=== PATIENT | male | born 1965 | race Caucasian/White ===

== ENCOUNTER 2022-08-25 11:00 | Inpatient (IN) | payer OTHER ==
[2022-09-08 18:03] VITALS: BMI 38.2
[2022-09-19] MEDS ORDERED: BUPIVACAINE HCL/PF 2.5 MG/ML - 30 ML VIAL IJ ONE (10:16)
[2022-09-19] MEDS ORDERED: PROPOFOL 40 ML ONE (11:26)
[2022-09-19] MEDS ORDERED: SUCCINYLCHOLINE CHLORIDE 200 MG/10 ML SYRINGE ONE (11:35)
[2022-09-19] MEDS ORDERED: ROCURONIUM BROMIDE 50 MG/5 ML SYRINGE ONE ×2 (11:40→13:04)
[2022-09-19] MEDS ORDERED: MIDAZOLAM HCL 2 MG/2 ML SINGLE DOSE VIAL ONE (11:42)
[2022-09-19] MEDS ORDERED: ceFAZolin SODIUM 1 GM VIAL ONE ×3 (11:44)
[2022-09-19] MEDS ORDERED: HYDROmorphone HCL/PF 1 MG/ML VIAL ONE (11:48)
[2022-09-19] MEDS ORDERED: ONDANSETRON 4 MG/2 ML VIAL ONE (11:49)
[2022-09-19] MEDS ORDERED: DEXAMETHASONE SOD PHOSPHATE 4 MG/1 ML VIAL ONE (11:49)
[2022-09-19] MEDS ORDERED: SUGAMMADEX SODIUM 200 MG/2 ML VIAL ONE ×2 (12:26→13:07)
[2022-09-19] MEDS ORDERED: KETOROLAC TROMETHAMINE 30 MG/1 ML VIAL ONE (13:07)
[2022-09-19] MEDS ORDERED: METOCLOPRAMIDE HCL INJECTION 10 MG/2 ML VIAL ONE (13:33)
[2022-09-19] MEDS ORDERED: FAMOTIDINE 20 MG/50 ML IVPB 20 MG/50 ML MG IVPB ONE (13:33)
[2022-09-19] MEDS ORDERED: HYDROmorphone HCL/PF 1 MG/ML VIAL IVPB PRN (13:36)
[2022-09-19] MEDS ORDERED: ONDANSETRON 4 MG/2 ML VIAL IVPUSH PRN (13:42)
[2022-09-19] MEDS ORDERED: LACTATED RINGERS SOLUTION 1,000 ML IV SCH (13:45)
[2022-09-19] MEDS: ONDANSETRON 4 MG/2 ML VIAL IVPUSH PRN ×2 (14:06→18:07)
[2022-09-19] MEDS: METOCLOPRAMIDE HCL INJECTION 10 MG/2 ML VIAL IVPUSH SCH ×3 (14:07→20:05)
[2022-09-19 14:50] LABS: HEMATOCRIT 45.4 % (35.4-49); HEMOGLOBIN 14.7 G/dL (11.7-16.9); MCH 29.4 pg (25.7-33.7); MCHC 32.3 g/dl (32.0-35.9); MEAN CELL VOLUME 90.9 fl (80-96); MEAN PLT VOLUME 8.6 fl (7.5-11.1); PLATELET COUNT 233.1 10^3/uL (134-434); RBC 4.99 10^6/uL (4.00-5.60); WHITE BLOOD COUNT 7.7 10^3/uL (4.0-10.8)
[2022-09-19 15:10] LABS: ALBUMIN 4.1 g/dl (3.4-5.0); BILIRUBIN,TOTAL 0.4 mg/dl (0.2-1); CALCIUM 8.5 mg/dl (8.5-10.1); POTASSIUM 4.4 mmol/L (3.5-5.1); SGOT/AST 19.8 U/L (15-37); SGPT/ALT 11.7 U/L (7-52); TOT PROT 6.7 g/dl (6.4-8.2)
[2022-09-19] MEDS: SODIUM CHLORIDE 1,000 ML IV SCH ×2 (18:11→21:23)
[2022-09-19] MEDS: FAMOTIDINE 20 MG/50 ML IVPB 20 MG/50 ML MG IVPB SCH (21:23)
[2022-09-19 21:25] LABS: HEMATOCRIT 43.6 % (35.4-49); HEMOGLOBIN 14.2 G/dL (11.7-16.9); MCH 29.6 pg (25.7-33.7); MCHC 32.6 g/dl (32.0-35.9); MEAN CELL VOLUME 90.8 fl (80-96); MEAN PLT VOLUME 8.3 fl (7.5-11.1); PLATELET COUNT 232.5 10^3/uL (134-434)
[2022-09-19] MEDS: HYDROmorphone HCL/PF 1 MG/ML VIAL IVPUSH PRN (21:29)
[2022-09-19 21:39] LABS: BILIRUBIN,TOTAL 0.4 mg/dl (0.2-1); BLOOD UREA NITROGEN 12.6 mg/dl (7-18); CALCIUM 8.2 mg/dl (8.5-10.1); CREATININE 0.9 mg/dl (0.6-1.3); POTASSIUM 4.4 mmol/L (3.5-5.1); SGOT/AST 24.5 U/L (15-37); SGPT/ALT 12.9 U/L (7-52); TOT PROT 6.7 g/dl (6.4-8.2)
[2022-09-20] MEDS: METOCLOPRAMIDE HCL INJECTION 10 MG/2 ML VIAL IVPUSH SCH ×3 (01:48→13:51)
[2022-09-20] MEDS: HYDROmorphone HCL/PF 1 MG/ML VIAL IVPUSH PRN (02:26)
[2022-09-20] MEDS: SODIUM CHLORIDE 1,000 ML IV SCH (05:42)
[2022-09-20 08:47] LABS: HEMATOCRIT 39.2 % (35.4-49); HEMOGLOBIN 12.7 G/dL (11.7-16.9); MCH 29.4 pg (25.7-33.7); MCHC 32.4 g/dl (32.0-35.9); MEAN CELL VOLUME 90.7 fl (80-96); MEAN PLT VOLUME 8.7 fl (7.5-11.1); PLATELET COUNT 230.1 10^3/uL (134-434); RBC 4.32 10^6/uL (4.00-5.60); RDW 14.6 % (11.9-15.9); WHITE BLOOD COUNT 9.3 10^3/uL (4.0-10.8)
[2022-09-20] MEDS: FAMOTIDINE 20 MG/50 ML IVPB 20 MG/50 ML MG IVPB SCH (09:23)
[2022-09-20 09:54] LABS: ALBUMIN 3.7 g/dl (3.4-5.0); BILIRUBIN,TOTAL 0.5 mg/dl (0.2-1); BLOOD UREA NITROGEN 12.6 mg/dl (7-18); CALCIUM 7.7 mg/dl (8.5-10.1); CREATININE 0.9 mg/dl (0.6-1.3); POTASSIUM 4.1 mmol/L (3.5-5.1); SGOT/AST 22.7 U/L (15-37); SGPT/ALT 10.5 U/L (7-52); TOT PROT 5.9 g/dl (6.4-8.2)
[2022-09-20] MEDS ORDERED: oxyCODONE HCL 5 MG TABLET PO PRN (10:16)
[2022-09-20] MEDS ORDERED: ACETAMINOPHEN 325 MG TABLET (FP) PO PRN (10:16)
[2022-09-20] MEDS ORDERED: SODIUM CHLORIDE 1,000 ML IV SCH (10:30)
[2022-09-20 13:55] VITALS: BP 127/81; PULSE 71; RESP 19; TEMP 98.9
== END 2022-09-20 13:55 | disposition home or self-care (01) | DRG 621 ==
LOC: FM/S 09-19 08:49
PROVIDERS: ADMIT Surgery; ATTEND Surgery
PROC: 0DJ04ZZ Inspection of Upper Intestinal Tract, Percutaneous Endoscopic Approach (ICD-10-PCS; 2022-09-19)
PROC: 0DB64Z3 Excision of Stomach, Percutaneous Endoscopic Approach, Vertical (ICD-10-PCS; principal; 2022-09-19 12:01)
DX: E66.01 Morbid (severe) obesity due to excess calories (principal); Z68.37 Body mass index [BMI] 37.0-37.9, adult
CPT/HCPCS: 36415; 74240-TC-FY; 80053; 85027; 86850; 86900; 86901; 94760